=== PATIENT | male | born 1970 | race Caucasian/White ===

== ENCOUNTER → 2022-01-07 | Outpatient (CLI) | payer OTHER ==
--- NOTE | 2022-01-08 10:38 | RAD ---
Exam: XR SHOULDER_LEFT 2+ VIEWS History: Pain from overhead lifting. Comparison: None. Findings: Osseous mineralization is normal. No acute fracture or dislocaton. Degenerative osteophytes at the ac romioclavicular joint. The glenohumeral joint is unremarkable. The subacromial space is preserved. So ft tissues are unremarkable. Impression: 1. 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 Electronically signed by: Geronimo Panchal MD (01/08/2022 10:35 AM) [id number]
== END ==
LOC: RAD 16:24
PROVIDERS: ATTEND Family Medicine
DX: M19.012 Primary osteoarthritis, left shoulder (principal)
CPT/HCPCS: 73030